=== PATIENT | female | born 1985 | race Hispanic/Latino ===

== ENCOUNTER 2016-08-19 19:11 | Emergency (ER) | payer OTHER ==
[2016-08-20 01:31] VITALS: BP 117/75
--- NOTE | 2016-08-20 01:40 | XRay Report ---
FINAL REPORT PROCEDURE: XR TIBIA FIBULA 2V LT TECHNIQUE: LEFT tibia and fibula radiographs, AP and lateral views. CPT 70009 HISTORY: LEG injury with pain COMPARISON: No prior studies are available for comparison. FINDINGS: Fracture (s) and/or Dislocation(s): None . Joint space(s): Normal . Soft tissues: Normal . Bone mineralization: Normal . Foreign bodies: None . IMPRESSION: Normal Examination.
[2016-08-20] MEDS ORDERED: TORADOL IM ONE (02:01)
--- NOTE | 2016-08-20 02:09 | Emergency Department Report ---
HPI - General Chief Complaint: Extremity Injury, Lower Time Seen by Provider: 08/20/16 01:43 - HPI HPI: 31-year-old female presents today with left garcia pain post injury that occurred 2 weeks ago. Patient states that she was doing proximal symptoms on August 06 when she missed the box and hurt her left garcia. Positive for previous injuries. Denies numbness, weakness, paresthesias. Describes her pain as 8 out of 10 constant, sharp pain with shooting pain that comes and goes. Try tramadol with temporary relief. Denies fever, chills, nausea, vomiting, chest pain, shortness of breath, abdominal pain. Positive for history of action splints. ED Past Medical Hx - Past Medical History Previous Medical History?: No - Surgical History Additional Surgical History: x1 - Social History Smoking Status: Never Smoker Substance Use Type: None - Medications Home Medications: Home Medications Medication Instructions Recorded Confirmed Last Taken Type Cyclobenzaprine HCl [Flexeril 5 MG 5 mg PO TID #14 tab 08/20/16 Unknown Rx TAB] Naproxen [Naprosyn] 500 mg PO BID #30 tablet 08/20/16 Unknown Rx ED Review of Systems ROS: Stated complaint: LEG INJURY Other details as noted in HPI Constitutional: denies: chills, fever, malaise Eyes: denies: eye pain ENT: denies: ear pain, throat pain, congestion Respiratory: denies: cough, shortness of breath, wheezing Cardiovascular: denies: chest pain, palpitations Endocrine: no symptoms reported Gastrointestinal: denies: abdominal pain, nausea, vomiting Musculoskeletal: arthralgia Neurological: denies: headache, weakness, numbness, paresthesias Physical Exam - Physical Exam Vital Signs: Vital Signs 08/19/16 08/20/16 20:25 01:30 Temperature 98.7 F 98.1 F Pulse Rate 62 60 Respiratory 18 16 Rate Blood Pressure 151/86 Blood Pressure 117/75 [Right] O2 Sat by Pulse 100 98 Oximetry Physical Exam: GENERAL: The patient is well-developed and well-nourished. Patient is in NAD. HEAD: Normocephalic. Atraumatic. CHEST/LUNGS: Clear to auscultation throughout. HEART/CARDIOVASCULAR: Regular rate and rhythm. ABDOMEN: Abdomen is soft, nontender. No guarding or rebound tenderness. LEFT LOWER EXTREMITY: Full range of motion. Abrasion noted over the left mid garcia. Positive for minimal tenderness to palpation of the left garcia. Increased pain with plantarflexion and dorsiflexion of left ankle. Normal sensation. Peripheral pulses intact. Capillary refill less than 2 seconds. NEURO: Alert and oriented x 3. Normal gait. ED Course Vital Signs 08/19/16 08/20/16 20:25 01:30 Temperature 98.7 F 98.1 F Pulse Rate 62 60 Respiratory 18 16 Rate Blood Pressure 151/86 Blood Pressure 117/75 [Right] O2 Sat by Pulse 100 98 Oximetry ED Medical Decision Making - Lab Data Vital Signs 08/19/16 08/20/16 20:25 01:30 Temperature 98.7 F 98.1 F Pulse Rate 62 60 Respiratory 18 16 Rate Blood Pressure 151/86 Blood Pressure 117/75 [Right] O2 Sat by Pulse 100 98 Oximetry - Radiology Data Radiology results: report reviewed PROCEDURE: XR TIBIA FIBULA 2V LT TECHNIQUE: LEFT tibia and fibula radiographs, AP and lateral views. CPT 93549 HISTORY: LEG injury with pain COMPARISON: No prior studies are available for comparison. FINDINGS: Fracture (s) and/or Dislocation(s): None . Joint space(s): Normal . Soft tissues: Normal . Bone mineralization: Normal . Foreign bodies: None . IMPRESSION: Normal Examination. - Medical Decision Making 31-year-old female presents today with left garcia pain post injury. Her x-ray results reveal no fracture or dislocation. Patient has been provided with a referral for orthopedic. Patient is in no acute distress at this time. She will be discharged home and is encouraged to follow up with a primary care provider. She will be sent home on Flexeril and Naprosyn and is encouraged to return to the emergency room for any worsening symptoms. Critical care attestation.: If time is entered above; I have spent that time in minutes in the direct care of this critically ill patient, excluding procedure time. ED Disposition Clinical Impression: Pain in left garcia Disposition: DISCHARGED TO HOME OR SELFCARE Is pt being admited?: No Does the pt Need Aspirin: No Condition: Stable Instructions: Arthralgia (ED), Garcia Splints (ED) Additional Instructions: Follow-up with primary care provider and orthopedic. Return to emergency department if symptoms worsen. Prescriptions: Cyclobenzaprine HCl [Flexeril 5 MG TAB] 5 mg PO TID #14 tab Naproxen [Naprosyn] 500 mg PO BID #30 tablet Referrals: MATTHEW ORDOÑEZ MD [Primary Care Provider] - 3-5 Days JESUS REYES MD [Staff Physician] - 3-5 Days Forms: Work/School Release Form(ED) Time of Disposition: 02:10
== END 2016-08-20 02:12 | disposition home or self-care (01) ==
LOC: ED 19:11
DX: M79.662 Pain in left lower leg (principal); Z79.899 Other long term (current) drug therapy; Z91.041 Radiographic dye allergy status; Z88.1 Allergy status to other antibiotic agents; Z79.1 Long term (current) use of non-steroidal anti-inflammatories (NSAID)
CPT/HCPCS: 73590; 96372; 99283; J1885